=== PATIENT | male | born 1985 | race Caucasian/White ===

== ENCOUNTER 2019-04-05 16:05 | Inpatient (IN) | payer OTHER ==
[~2019-04-05] VITALS: Ht 177.8 cm; Wt 76.7 kg
[2019-04-05 16:06] VITALS: BP 134/79
--- NOTE | 2019-04-05 16:53 | NUR ---
PATIENT MEETS [facility]. PATIENT IS GOING TO FOLLOW BACK WITH [facility] FOR RESIDENTIAL TREATMENT FOR HIS AFTERCARE PLAN. AUDREY MASCORRO B.A. USED CAR [employer] MECH[employer]IC
[2019-04-05 17:05] LABS: BILIRUBIN NEGATIVE (NEGATIVE); BLOOD NEGATIVE (NEGATIVE); CLARITY CLEAR (CLEAR); COLOR YELLOW (YELLOW); GLUCOSE NEGATIVE (NEGATIVE); KETONE 1+ (NEGATIVE); LEUKO ESTERASE NEGATIVE (NEGATIVE); NITRITE NEGATIVE (NEGATIVE); PH 6.5 (5.0-9.0); UROBILINOGEN 0.2 E.U./dl (0.2-1.0)
[2019-04-05 17:06] LABS: BASO % 0.1 % (0.0-1.0); EOS % 0.1 % (1.0-4.0); HEMATOCRIT 39.9 % (42.0-52.0); HEMOGLOBIN 13.2 g/dl (14.0-18.0); LYMPH # 2.1 10*3/uL (1.3-4.4); LYMPH % 22.9 % (27.0-41.0); MEAN CELL VOLUME 93.7 fl (80.0-94.0); MEAN CORPUSCULAR HGB CONC 33.1 g/dl (33.0-37.0); MEAN PLATELET VOLUME 9.5 fl (9.6-12.3); MONO # 0.6 10*3/uL (0.1-1.0); MONO % 6.3 % (3.0-9.0); NEUT # 6.4 10*3/uL (2.3-7.9); NEUT % 70.1 % (47.0-73.0); PLATELET COUNT AUTOMATED 181 10*3/uL (130-400); RED BLOOD COUNT 4.26 10*6/uL (4.50-5.90); RED CELL DISTRI WIDTH 12.6 % (0-14.5); WHITE BLOOD COUNT 9.1 10*3/uL (4.8-10.8)
[2019-04-05 17:12] LABS: URINE AMPHETAMINES < 1000 (1000ng/ml); URINE BARBITURATES < 200 (200ng/ml); URINE BENZODIAZEPINES < 200 (200ng/ml); URINE CANNABINOIDS (THC) < 50 (50ng/ml); URINE COCAINE < 300 (300ng/ml); URINE METHADONE < 300 (300ng/ml); URINE OPIATES > 300 (300ng/ml)
[2019-04-05 17:15] VITALS: BP 136/84
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
[2019-04-05 17:19] LABS: URINE PHENCYCLIDINE < 25 (25ng/ml)
[2019-04-05 17:23] LABS: BACTERIA TRACE
--- NOTE | 2019-04-05 17:23 | NUR ---
DR. BLANCAS AWARE PT IN ROOM FOR ADMISSION. NO HOME MEDICATIONS.
[2019-04-05 17:24] LABS: EPITHELIAL CELLS 0-2
[2019-04-05 17:44] LABS: ALBUMIN 3.9 gm/dl (3.1-4.5); ALKALINE PHOSPHATASE 84 U/L (45-117); BUN 16 mg/dl (7-24); CHLORIDE 99 mmol/L (98-107); CREATININE 0.94 mg/dL (0.70-1.30); POTASSIUM 3.6 mmol/L (3.5-5.1); SGOT/AST 35 IU/L (3-35); SGPT/ALT 92 U/L (12-78); SODIUM 136 mmol/L (136-145); TOTAL PROTEIN 7.6 gm/dL (6.4-8.2)
[2019-04-05 17:51] LABS: ETHYL ALCOHOL < 3.0 mg/dl (<3)
[2019-04-05 20:00] VITALS: BP 123/65
--- NOTE | 2019-04-05 20:00 | NUR ---
RESTING IN BED WITH EYES CLOSED. RESPIRATIONS EASY & UNLABORED ON ROOM AIR. NO DISTRESS NOTED. CALL LIGHT WITHIN REACH.
--- NOTE | 2019-04-05 23:30 | NUR ---
RESTING IN BED; VOICES NO C/O AT THIS TIME. REFUSING AND MEDICATIONS. ENCOURAGED PT. TO LET ME KNOW IF HE NEEDED ANYTHING. VERBALIZED UNDERSTANDING. CALL LIGHT WITHIN REACH.
[2019-04-06] VITALS: BP 126/53
--- NOTE | 2019-04-06 06:00 | NUR ---
RESTING IN BED WITH EYES CLOSED. CALL LIGHT WITHIN REACH.
[2019-04-06 08:00] VITALS: BP 111/69
[2019-04-06 12:00] VITALS: BP 120/81
--- NOTE | 2019-04-06 15:28 | NUR ---
PATIENT IS GOING TO FOLLOW UP WITH [facility] FOR HIS AFTERCARE PLAN. AUDREY MASCORRO B.A. [employer]ON [employer]OWER
[2019-04-06 16:00] VITALS: BP 119/67
[2019-04-06 20:00] VITALS: BP 120/75
[2019-04-07] VITALS: BP 126/72
[2019-04-07 08:00] VITALS: BP 116/77
--- NOTE | 2019-04-07 11:04 | NUR ---
Discharge instructions reviewed with patient/family. Patient receptive and verbalizes understanding. Follow-up care arranged. Written instructions given to patient/family. Patient ambulated from unit with all personal belongings accounted and was educated on following up per [facility] protocol. AMALIA GUILLERMO
== END 2019-04-07 11:04 | disposition home or self-care (01) | DRG 773 ==
LOC: ED 16:05 → EDHOLD 16:22 → 5E 16:22
PROVIDERS: Internal Medicine; Physician Assistant; ADMIT Internal Medicine
DX: F11.23 Opioid dependence with withdrawal (principal); D64.9 Anemia, unspecified; R51 Headache; R73.9 Hyperglycemia, unspecified; R74.0 Nonspecific elevation of levels of transaminase and lactic acid dehydrogenase [LDH]; F17.210 Nicotine dependence, cigarettes, uncomplicated; Z71.6 Tobacco abuse counseling; Z80.8 Family history of malignant neoplasm of other organs or systems